=== PATIENT | female | born 1955 | race Caucasian/White ===

== ENCOUNTER 2017-08-10 09:40 | Outpatient (CLI) | payer OTHER ==
--- NOTE | 2017-08-11 19:09 | Mammography Report ---
DIGITAL SCREENING MAMMOGRAM: 08/10/2017 CLINICAL INDICATION: A 61-year-old with history of bilateral implants for screening. COMPARISON: 07/2015, 11/2012, 10/2011, 09/2010. TECHNIQUE: Routine CC and MLO projections as well as bilateral implant displaced views were obtained of the breasts. The breasts demonstrate fatty replacement bilaterally. Coarse, typically benign calcifications are p resent. Bilateral subpectoral saline implants are stable. No suspicious masses, clustered microcalc ifications, or regions of architectural distortion are identified. IMPRESSION: BENIGN FINDINGS. RECOMMENDATION: ROUTINE ANNUAL SCREENING UNLESS OTHERWISE CLINICALLY INDICATED. BIRADS CATEGORY: 2, BENIGN FINDINGS. STANDARD QUALIFYING STATEMENTS 1. This examination was reviewed with the aid of Computed-Aided Detection (CAD). 2. A negative or benign imaging report should not delay biopsy if clinically suspicious findings are present. Consider surgical consultation if warranted. More than 5% of cancers are not identified b y imaging. 3. Dense breasts may obscure an underlying neoplasm. JOB #: [id number] EXT JOB #:[id number]
== END 2017-08-10 09:41 | disposition home or self-care (01) ==
LOC: DI 09:40
PROVIDERS: ATTEND Family Medicine
DX: Z12.31 Encounter for screening mammogram for malignant neoplasm of breast (principal); Z98.82 Breast implant status
CPT/HCPCS: 77067

== ENCOUNTER 2018-02-13 13:10 | Outpatient (CLI) | payer OTHER ==
--- NOTE | 2018-02-15 09:09 | XRAY Report ---
EXAM: CERVICAL SPINE RADIOGRAPHY EXAM DATE: 02/13/2018 01:54 PM. CLINICAL HISTORY: Cervicalgia, persistent migraines x 6+months. COMPARISONS: None. TECHNIQUE: 3 views. FINDINGS: Alignment: Minimal retrolisthesis at C4-C5 by approximately 1.5 mm. Bones: The cervical vertebral bodies and posterior elements are well visualized from the skull base t hrough C7-T1. Small anterior and posterior osteophytes from C3-C4 to C6-C7. Disks: Mild to moderate C3-C4, moderate C4-C5, mild to moderate C5-C6,and mild C6-C7 disk space narro wing. Facets: Multilevel facet arthropathy. Uncovertebral joint arthropathy at C4-C5 and C5-C6. Soft Tissues: Normal. No prevertebral soft tissue swelling. The visualized lung apices are clear. IMPRESSION: 1. Minimal retrolisthesis at C4-C5. 2. Multilevel osteophytosis, disk space narrowing, and facet arthropathy. 3. Uncovertebral joint arthropathy at C4-C5 and C5-C6. [facility] Referring Provider Line: [phone] SITE ID: [id number]
--- NOTE | 2018-02-15 09:12 | XRAY Report ---
EXAM: SKULL RADIOGRAPHY EXAM DATE: 02/13/2018 01:52 PM. CLINICAL HISTORY: Cervicalgia, persistent MIGRAINES X 6+MONTHS. COMPARISON: None. TECHNIQUE: 2 views. FINDINGS: Bones: Normal. No fractures or bone lesions. Sinuses: Normal. No opacities or fluid levels. Other: C3-C4 degenerative disk disease. No soft tissue swelling. IMPRESSION: Normal skull radiography. [facility] Referring Provider Line: [phone] SITE ID: [id number]
== END 2018-02-13 13:11 | disposition home or self-care (01) ==
LOC: DI 13:10
PROVIDERS: ATTEND Internal Medicine
DX: M54.2 Cervicalgia (principal); G43.509 Persistent migraine aura without cerebral infarction, not intractable, without status migrainosus; M25.78 Osteophyte, vertebrae
CPT/HCPCS: 70250; 72040

== ENCOUNTER 2018-02-23 08:45 | Outpatient (CLI) | payer OTHER ==
[~2018-02-23 08:45] MED LIST: GADOBUTROL 15 MMOL/15 ML VIAL ONE
[2018-02-23] MEDS ORDERED: GADOBUTROL 15 MMOL/15 ML VIAL IVP ONE (09:49)
--- NOTE | 2018-02-23 15:19 | MRI Report ---
EXAM: MRI BRAIN WITHOUT AND WITH CONTRAST EXAM DATE: 02/23/2018 09:59 AM. CLINICAL HISTORY: Headaches, multiple head injuries, likely occipital neuralgia. COMPARISON: None. TECHNIQUE: Multiplanar, multisequence T1-weighted and fluid-sensitive MR sequences of the brain were performed. Sequences optimized for routine evaluation. Other: None. IV Contrast: 12ML GADAVIST. FINDINGS: No restricted diffusion signal or magnetic susceptibility is present in the brain parenchyma. Ventricles and sulci are within normal limits. No extra-axial fluid collection is present FLAIR hyperintensities are seen in the central [place] bilaterally. Subcortical and deep white matter FL AIR hyperintensities are seen in the cerebral hemisphere white matter bilaterally. An expected flow void is seen in the major intracranial vessels at the skull base. No abnormal T1 shortening or enhancing mass is identified in the brain parenchyma. The cavernous sinu ses enhance in symmetric fashion. No mass is present in either meckel's cave. The right transverse si nus is hypoplastic. No mass is identified in either orbit. IMPRESSION: 1. FLAIR hyperintensities in the cerebral hemisphere white matter bilaterally and in the central austen are nonspecific. Commonly, these are seen secondary to small vessel ischemic change or in associatio n with certain headache syndromes. White matter lesions have been described in many other entities, i ncluding in demyelinating processes. 2. No enhancing mass is present in the brain parenchyma. 3. No abnormal magnetic susceptibility is present to suggest prior hemorrhagic contusions. [facility] Referring Provider Line: [phone] SITE ID: [id number]
== END 2018-02-23 08:46 | disposition home or self-care (01) ==
LOC: DI 08:45
PROVIDERS: ATTEND Internal Medicine
DX: G44.89 Other headache syndrome (principal); Z87.820 Personal history of traumatic brain injury
CPT/HCPCS: 70553; A9585

== ENCOUNTER 2018-11-12 11:01 | Outpatient (CLI) | payer OTHER ==
[2018-11-12 11:29] LABS: ALBUMIN 4.3 g/dL (3.2-5.5); BILIRUBIN,DIRECT 0.3 mg/dL (0.1-0.5); BILIRUBIN,TOTAL 1.3 mg/dL (0.2-1.0); TOTAL PROTEIN 8.1 g/dL (6.7-8.2)
== END 2018-11-12 11:02 | disposition home or self-care (01) ==
LOC: LAB 11:01
PROVIDERS: ATTEND Physician Assistant
DX: B35.1 Tinea unguium (principal)
CPT/HCPCS: 36415; 80076

== ENCOUNTER 2022-06-12 13:32 | Outpatient (CLI) | payer MEDICARE ==
--- NOTE | 2022-06-13 10:16 | Mammography Report ---
BILATERAL DIGITAL SCREENING MAMMOGRAM 3D/2D WITH AUGMENTATION: 06/12/2022 CLINICAL: Routine screening; has implants. Comparison is made to exams dated: 08/10/2017 mammogram, 07/24/2015 mammogram, 11/23/2012 mammogram, and 10/14/2011 ultrasound - [facility]. There are scattered areas of fibroglandular density in both breasts (category b / 25%-50% glandular t issue). Bilateral breast implants are present. No significant masses, calcifications, or other findings are seen in either breast. There has been no significant interval change. IMPRESSION: BENIGN There is no mammographic evidence of malignancy. A 1 year screening mammogram is recommended. Based on the Tyrer Cuzick model (a risk assessment model) the patients lifetime risk is 5.8% and her 10 year risk is 2.8%. According to the ACR, ACS, and NCCN guidelines, an annual breast MRI exam gifty g with mammogram is recommended if the patients lifetime risk is 20% or greater. This exam was interpreted at Station ID: [id number]. NOTE: For mammograms, a report in lay terms will be sent to the patient. Approximately 15% of breast malignancies will not be visualized mammographically. In the management of a palpable breast mass, a negative mammogram must not discourage biopsy of a clinically suspicious lesion. Electronically Signed By: Mumtaz [email or web address]:06/12/2022 16:05:33 ACR BI-RADS Category 2: Benign Finding(s) 3342F PARENCHYMAL PATTERN: (A) - The breast(s) demonstrate(s) scattered fibroglandular densities. BI-RADS CATEGORY: (2) - 2 RECOMMENDATION: (ANNUAL) - Recommend routine annual screening mammography. [id number] 1 year screening LATERALITY: (B)
== END 2022-06-12 13:33 | disposition home or self-care (01) ==
LOC: DI 13:32
DX: Z12.31 Encounter for screening mammogram for malignant neoplasm of breast (principal); Z98.82 Breast implant status

== ENCOUNTER 2022-08-08 20:11 | Outpatient (CLI) | payer MEDICARE, MEDICAID | END 2022-08-08 20:12 | disposition short-term general hospital (02) | LOC: EMS 20:11 | DX: T40.2X1A Poisoning by other opioids, accidental (unintentional), initial encounter (principal); R06.89 Other abnormalities of breathing; R23.0 Cyanosis; R40.0 Somnolence; R47.81 Slurred speech | CPT/HCPCS: A0425; A0427 ==

== ENCOUNTER 2024-03-31 07:26 | Outpatient (CLI) | payer MEDICARE, BC ==
[2024-03-31 15:14] LABS: BASOPHILS % (AUTO) 0.6 %; EOSINOPHILS # (AUTO) 0.2 10^3/uL (0.0-0.7); EOSINOPHILS % (AUTO) 3.1 %; HCT - HEMATOCRIT 35.7 % (37.0-47.0); HGB - HEMOGLOBIN 11.2 g/dL (12.0-16.0); LYMPHOCYTES # (AUTO) 1.1 10^3/uL (1.5-3.5); LYMPHOCYTES % (AUTO) 23.7 %; MEAN CORPUSCULAR HEMOGLOBIN 30.9 pg (27.0-31.0); MEAN CORPUSCULAR HGB CONC 31.4 g/dL (32.0-36.0); MEAN CORPUSCULAR VOLUME 98.6 fL (81.0-99.0); MEAN PLATELET VOLUME 10.6 fL (7.9-10.8); MONOCYTES # (AUTO) 0.5 10^3/uL (0.0-1.0); MONOCYTES % (AUTO) 10.2 %; NEUTROPHILS % (AUTO) 62.2 %; PLT - PLATELET COUNT 218 10^3/uL (130-450); RED BLOOD COUNT 3.62 10^6/uL (4.20-5.40); RED CELL DISTRIBUTION WIDTH 13.9 % (12.0-15.0); WHITE BLOOD COUNT 4.8 x10^3/uL (4.8-10.8)
[2024-03-31 15:26] LABS: ALBUMIN 3.9 g/dL (3.2-5.5); ALBUMIN/GLOBULIN RATIO 1.3 (1.0-2.2); BILIRUBIN,TOTAL 0.7 mg/dL (0.2-1.0); CALCIUM 10.5 mg/dL (8.5-10.3); CREATININE 0.6 mg/dL (0.6-1.3); POTASSIUM 3.6 mmol/L (3.5-4.5); TOTAL PROTEIN 6.9 g/dL (6.4-8.9)
[2024-03-31 15:38] LABS: THYROID STIMULATING HORMONE 1.74 uIU/mL (0.34-5.60)
[2024-03-31 20:44] LABS: ESTIMATED AVERAGE GLUCOSE 82 mg/dL (70-100); HEMOGLOBIN A1c% 4.5 % (4.27-6.07)
== END 2024-03-31 07:27 | disposition home or self-care (01) ==
LOC: LAB.S 07:26
PROVIDERS: ATTEND Internal Medicine
DX: Z98.84 Bariatric surgery status (principal)
CPT/HCPCS: 36415; 80053; 82306; 82607; 82728; 83036; 83540; 84443; 84466; 85025